=== PATIENT | male | born 1965 | race African-American/Black ===

== ENCOUNTER 2016-11-26 16:24 | Emergency (ER) | payer SELFPAY ==
--- NOTE | 2016-11-26 17:49 | ER Document Report ---
ED Extremity Problem, Lower - General Chief Complaint: Knee Pain Stated Complaint: LEFT LEG AND KNEE PAIN Time Seen by Provider: 11/26/16 17:34 Mode of Arrival: Ambulatory Information source: Patient Notes: 40-year-old male presents to ED for pain in his right knee 2 months states he fell about 2 months ago and has never been to a doctor yet. States she been trying to treat it himself but the pain is getting worse. There is also here for open draining sores to the left ankle lower leg and up to his knee. He states they started 3 months ago and has been trying to clean them with soap and water and treat them himself. States he had some similar once before and they put some yellow cream on his leg and wrapped his leg and it healed. TRAVEL OUTSIDE OF THE [place] IN LAST 30 DAYS: No - HPI Patient complains to provider of: Injury - To right knee 2 months ago, Pain, Swelling, Other - Left leg has open sores Location: Knee - Right knee, Leg - Calf Occurred: Other - See above Onset/Duration: Better Quality of pain: Pressure, Stabbing Severity: Moderate Pain Level: 4 Context: Fell - His right knee 2 months ago Recent injury: Possibly - 2 Month ago Associated symptoms: Painful ambulation Exacerbated by: Movement, Walking Relieved by: Nothing - Related Data Allergies/Adverse Reactions: No Known Allergies Allergy (Verified 11/26/16 16:27) Past Medical History - General Information source: Patient - Social History Smoking Status: Current Every Day Smoker Cigarette use (# per day): Yes - 1/2 ppd Chew tobacco use (# tins/day): No Smoking Education Provided: Yes - less than 2 months Frequency of alcohol use: Social - week ends Drug Abuse: None Occupation: Home Family History: Reviewed & Not Pertinent Patient has suicidal ideation: No Patient has homicidal ideation: No Renal/ Medical History: Denies: Hx Peritoneal Dialysis Skin Medical History: Reports Hx MRSA, Reports Hx Psoriasis - Immunizations Hx Diphtheria, Pertussis, Tetanus Vaccination: No Review of Systems - Review of Systems Constitutional: No symptoms reported EENT: No symptoms reported Cardiovascular: No symptoms reported Respiratory: No symptoms reported Gastrointestinal: No symptoms reported Genitourinary: No symptoms reported Male Genitourinary: No symptoms reported Musculoskeletal: Joint pain - right knee for 2 months with minimal swelling Skin: Other - scaley with areas of scabbing, excoriated, weeping wound from ankle to knee on the left leg Hematologic/Lymphatic: No symptoms reported Neurological/Psychological: No symptoms reported Physical Exam - Vital signs Vitals: Temp Pulse Resp BP Pulse Ox 98.4 F 62 14 128/85 H 97 11/26/16 16:27 11/26/16 16:27 11/26/16 16:27 11/26/16 16:27 11/26/16 16:27 Interpretation: Normal - General General appearance: Appears well, Alert - HEENT Head: Normocephalic, Atraumatic Eyes: Normal Pupils: PERRL - Respiratory Respiratory status: No respiratory distress Chest status: Nontender Breath sounds: Normal Chest palpation: Normal - Cardiovascular Rhythm: Regular Heart sounds: Normal auscultation Murmur: No - Abdominal Inspection: Normal Distension: No distension Bowel sounds: Normal Tenderness: Nontender Organomegaly: No organomegaly - Back Back: Normal, Nontender - Extremities General upper extremity: Normal inspection, Nontender, Normal color, Normal ROM , Normal temperature General lower extremity: Normal inspection, Nontender, Normal color, Normal ROM , Normal temperature, Normal weight bearing. No: Amira's sign Hip: Normal Thigh: Normal Knee: Tender, Pain with ROM, Other - swelling to right leg Calf: Other - scaley with areas of scabbing, excoriated, weeping wound from ankle to knee on the left leg Ankle: Edema Foot: Normal - Neurological Neuro grossly intact: Yes Cognition: Normal Orientation: AAOx4 Mj Coma Scale Eye Opening: Spontaneous Mj Coma Scale Verbal: Oriented [place] Coma Scale Motor: Obeys Commands [place] Coma Scale Total: 15 Speech: Normal Motor strength normal: LUE, RUE, LLE, RLE Sensory: Normal - Psychological Associated symptoms: Normal affect, Normal mood - Skin Skin Temperature: Warm Skin Moisture: Dry Skin Color: Normal Course - Re-evaluation Re-evalutation: 11/26/16 19:23 Discussed x-rays with patient and written report given to patient. Consulted Dr. Farnsworth concerning the infection to the left lower leg. Washed with soap and water rinsed well dried and Bactroban applied as well as 4 x 4's and Kerlix. Patient given instructions on care of wound and prescription for Bactroban as per Dr. Farnsworth suggestion. - Vital Signs Vital signs: Temp Pulse Resp BP Pulse Ox 98.4 F 62 16 128/85 H 97 11/26/16 16:27 11/26/16 16:27 11/26/16 17:52 11/26/16 16:27 11/26/16 16:27 - Diagnostic Test Radiology reviewed: Image reviewed, Reports reviewed Discharge - Discharge Clinical Impression: Impetigo Knee injury Qualifiers: Encounter type: initial encounter Laterality: right Qualified Code(s): S89.91XA - Unspecified injury of right lower leg, initial encounter Condition: Stable Disposition: HOME, SELF-CARE Additional Instructions: Impetigo You have a skin infection called impetigo. This infection is caused by germs growing between the skin layers. It spreads easily and is quite contagious. The usual treatment is with oral antibiotics, along with washing the sores and application of an antibiotic ointment. There's a new prescription antibiotic ointment which may allow some cases of impetigo to be treated without pills. Healing takes about a week. All involved areas should recover with no scarring. If there is significant worsening, or if new symptoms (such as dark urine, fever, chills, or red streaks) arise, call the doctor or return for re- examination. SUSPECTED INTERNAL KNEE INJURY: The examiner of your injured knee suspects an internal injury to the cartilage or internal ligaments. This must be further investigated by an wildlife refuge specialist. The knee should be protected, ice packed, and elevated while awaiting your follow-up exam by the orthopedist. If there is severe swelling, severe pain, or any new symptoms while awaiting your exam, you should call the orthopedist. (If he/she is unavailable, call us or return for re-examination.) ICE & ELEVATION: Apply ice packs frequently against the painful area. Many different schedules are recommended, such as "20 minutes on, 20 minutes off" or "one hour ice, two hours rest." If you need to work, you may need to go longer between ice treatments. You should plan to have the area ice packed AT LEAST one- fourth of the time. The ice should be applied over the wrap, tape, or splint, or over a layer of cloth -- not directly against the skin. Some ice bags have a built-in cloth and can be put directly on the skin. Your injured part should be elevated as much as possible over the next 48 hours. Try to keep the injury above the level of the heart. Avoid use of the injured area. Elevation and rest will decrease the swelling. USE OF [id number] IBUPROFEN: Ibuprofen (Advil, Nuprin, Medipren, Motrin IB) is a medication for fever and pain control. In addition, it has anti- inflammatory effects which may be beneficial, especially in the treatment of injuries. It's best to take ibuprofen with food. Persons with ulcer disease or allergy to aspirin should notify their physician of this before taking ibuprofen. Ibuprofen can be given every four to six hours, for a total of four doses daily. Age Pain or fever dose Antiinflammatory dose 6-8 yr 200 mg (1 tab) 200 mg (1 tab) 9-11 yr 200 mg (1 tab) 200-400 mg (1-2 tab) 11-14 yr 200-400 mg (1-2 tab) 400 mg (2 tab) 15-adult 400 mg (2 tab) 600 mg (3 tab) Bactroban Ointment Bactroban is very effective against the germs that cause infection within the skin. It's useful for impetigo and other superficial infections. Deeper infections require antibiotics by mouth or by shot. Apply the medicine three times a day for one week, or longer if your doctor has advised it. Stop the medicine and call your doctor if you develop large blisters, severe itching, increasing pain, swelling, fever, or spreading redness. Soap Cleansing Gently wash the wound daily using a mild soap (like Ivory, Phisoderm, Neutrogena). Use warm water, rubbing gently until all debris, ooze, and crusting have been washed from the wound. Allow to dry briefly (about 10 minutes) after cleaning. Repeat this cleansing at least three times a day for the first two days and then once or twice a day. FOLLOW-UP CARE: If you have been referred to a physician for follow-up care, call the physician s office for an appointment as you were instructed or within the next two days. If you experience worsening or a significant change in your symptoms, notify the physician immediately or return to the Emergency Department at any time for re-evaluation. Prescriptions: Mupirocin [Bactroban 2% Ointment 22 gm] 22 applic TP TID #3 tube Forms: Elevated Blood Pressure, Smoking Cessation Education Referrals: [facility] [Provider Group] - Follow up as needed CESAR PIZANO MD [ACTIVE STAFF] - Follow up as needed
[2016-11-26] MEDS ORDERED: MUPIROCIN 2% OINTMENT 22 GM TP ONE (17:55)
--- NOTE | 2016-11-26 18:33 | RADIOLOGY REPORT (SQ) ---
EXAM DESCRIPTION: KNEE RIGHT 4 VIEWS COMPLETED DATE/TIME: 11/26/2016 6:04 pm REASON FOR STUDY: fall pain right knee COMPARISON: 07/21/2014 NUMBER OF VIEWS: Four views. TECHNIQUE: AP, lateral, and both oblique radiographic images acquired of the right knee. LIMITATIONS: None. FINDINGS: MINERALIZATION: Normal. BONES: No acute fracture or dislocation. No worrisome bone lesions. Small tricompartmental degenera tive osteophytes are noted. There is narrowing in the medial and lateral joint spaces. JOINT: No effusion. SOFT TISSUES: No soft tissue swelling. No radio-opaque foreign body. OTHER: No other significant finding. IMPRESSION: No acute fracture or dislocation identified. Mild moderate degenerative osteoarthritis. TECHNICAL DOCUMENTATION: JOB ID: [id number] [employer]- All Rights Reserved
[2016-11-26 19:33] VITALS: BP 111/72
== END 2016-11-26 19:34 | disposition home or self-care (01) ==
LOC: ER 16:24
DX: S89.91XA Unspecified injury of right lower leg, initial encounter (principal); L01.00 Impetigo, unspecified; M25.562 Pain in left knee; M79.605 Pain in left leg; W19.XXXA Unspecified fall, initial encounter; F17.210 Nicotine dependence, cigarettes, uncomplicated
CPT/HCPCS: 99283; 73564; J3490

== ENCOUNTER 2017-04-05 09:30 | Emergency (ER) | payer SELFPAY ==
--- NOTE | 2017-04-05 09:51 | ER Document Report ---
ED Medical Screen (RME) - General Chief Complaint: Leg Pain Stated Complaint: SKIN SORES ON LEGS Time Seen by Provider: 04/05/17 09:47 Mode of Arrival: Ambulatory Information source: Patient Notes: Patient is a 51 year old male who presents to the emergency department with chronic lower left extremity pain and swelling onset a week ago. Patient states that he has had problems with his legs for years. Patient denies any fevers. Patient has been seen multiple times in the emergency department but has not had follow up. Patient states he does get temporary relief with creams. Patient has on tight jeans therefore minimal exam was performed. Patient has dried scaling on the LLE with mild clear drainage. Patient has a sore on his RLE. Due to the unilateral complaints, an ultrasound has been initially ordered as not performed in the past. I have greeted and performed a rapid initial assessment of this patient. A comprehensive ED assessment and evaluation of the patient, analysis of test results and completion of the medical decision making process will be conducted by additional ED providers. TRAVEL OUTSIDE OF THE [place] IN LAST 30 DAYS: No - Related Data Allergies/Adverse Reactions: No Known Allergies Allergy (Verified 04/05/17 09:33) Home Medications: Current Home Medications No Home Medications 04/05/17 [History] Past Medical History Renal/ Medical History: Denies: Hx Peritoneal Dialysis Skin Medical History: Reports Hx MRSA, Reports Hx Psoriasis - Immunizations Hx Diphtheria, Pertussis, Tetanus Vaccination: No Physical Exam - Vital signs Vitals: Temp Pulse Resp BP Pulse Ox 98.4 F 60 18 137/90 H 98 04/05/17 09:44 04/05/17 09:44 04/05/17 09:44 04/05/17 09:44 04/05/17 09:44 Course - Vital Signs Vital signs: Temp Pulse Resp BP Pulse Ox 98.4 F 60 18 137/90 H 98 04/05/17 09:44 04/05/17 09:44 04/05/17 09:44 04/05/17 09:44 04/05/17 09:44 Scribe Documentation - Scribe Written by Navneet:: Navneet Lang, 04/05/2017 acting as scribe for :: Patrick
--- NOTE | 2017-04-05 11:08 | ER Document Report ---
ED General - General Chief Complaint: Leg Pain Stated Complaint: SKIN SORES ON LEGS Time Seen by Provider: 04/05/17 09:47 Mode of Arrival: Ambulatory Information source: Patient Notes: 51 yr old smoker with hx of bilateral lower extremity edema in the past with skin sores on the right ochoa presents now with concerns of cracking skin on the left. pt denies any fevers or chills, denies any nausea or vomiting. pt given steroid creams for his legs. denies any hx of dvt or pe or such risk factors. TRAVEL OUTSIDE OF THE [place] IN LAST 30 DAYS: No - HPI Onset: Last week Onset/Duration: Worse Quality of pain: Burning Severity: Moderate Pain Level: 2 Associated symptoms: Leg swelling Exacerbated by: Walking Relieved by: Denies Similar symptoms previously: Yes Recently seen / treated by doctor: Yes - Related Data Allergies/Adverse Reactions: No Known Allergies Allergy (Verified 04/05/17 09:33) Past Medical History - General Information source: Patient - Social History Smoking Status: Current Every Day Smoker Cigarette use (# per day): Yes Chew tobacco use (# tins/day): No Smoking Education Provided: Yes - Patient counselled regarding cessation for 4 minutes Frequency of alcohol use: Occasional Drug Abuse: None Family History: Reviewed & Not Pertinent Patient has suicidal ideation: No Patient has homicidal ideation: No Renal/ Medical History: Denies: Hx Peritoneal Dialysis Skin Medical History: Reports Hx MRSA, Reports Hx Psoriasis - Immunizations Hx Diphtheria, Pertussis, Tetanus Vaccination: No Review of Systems - Review of Systems Notes: REVIEW OF SYSTEMS: CONSTITUTIONAL : Denies fever, chills, or sweats. Denies recent illness. EENT: Denies eye, ear, throat, or mouth pain or symptoms. Denies nasal or sinus congestion or discharge. Denies throat, tongue, or mouth swelling or difficulty swallowing. CARDIOVASCULAR: Denies chest pain. Denies palpitations or racing or irregular heart beat. admits to left ankle edema. RESPIRATORY: Denies cough, cold, or chest congestion. Denies shortness of breath, difficulty breathing, or wheezing. GASTROINTESTINAL: Denies abdominal pain or distention. Denies nausea, vomiting , or diarrhea. Denies blood in vomitus, stools, or per rectum. Denies black, tarry stools. Denies constipation. GENITOURINARY: Denies difficulty urinating, painful urination, burning, frequency, blood in urine, or discharge. MUSCULOSKELETAL: admits to left leg swelling SKIN: admits ot left ochoa and right calf sores HEMATOLOGIC : Denies easy bruising or bleeding. LYMPHATIC: Denies swollen, enlarged glands. NEUROLOGICAL: Denies confusion or altered mental status. Denies passing out or loss of consciousness. Denies dizziness or lightheadedness. Denies headache. Denies weakness or paralysis or loss of use of either side. Denies problems with gait or speech. Denies sensory loss, numbness, or tingling. Denies seizures. PSYCHIATRIC: Denies anxiety or stress. Denies depression, suicidal ideation, or homicidal ideation. ALL OTHER SYSTEMS REVIEWED AND NEGATIVE. Dictation was performed using [employer] voice recognition software PHYSICAL EXAMINATION: GENERAL: Well-appearing, well-nourished and in no acute distress. HEAD: Atraumatic, normocephalic. EYES: Pupils equal round and reactive to light, extraocular movements intact, sclera anicteric, conjunctiva are normal. ENT: Nares patent, oropharynx clear without exudates. Moist mucous membranes. NECK: Normal range of motion, supple without lymphadenopathy LUNGS: Breath sounds clear to auscultation bilaterally and equal. No wheezes rales or rhonchi. HEART: Regular rate and rhythm without murmurs ABDOMEN: Soft, nontender, nondistended abdomen. No guarding, no rebound. No masses appreciated. Musculoskeletal: Normal range of motion, no pitting or edema. No cyanosis. NEUROLOGICAL: Cranial nerves grossly intact. Normal speech, normal gait. Normal sensory, motor exams PSYCH: Normal mood, normal affect. SKIN: left leg edema noted with dry cracked skin with erythema near the left knee. area of ulceration of the right calf superficial , weeping of the skin noted Physical Exam - Vital signs Vitals: Temp Pulse Resp BP Pulse Ox 98.4 F 60 18 137/90 H 98 04/05/17 09:44 04/05/17 09:44 04/05/17 09:44 04/05/17 09:44 04/05/17 09:44 Course - Re-evaluation Re-evalutation: 04/05/17 15:11 doppler was negative for dvt, however patient has probable pvd as seen by hair loss and chronic stasis changes. pt has probable cellulitc component as well, will treat with clinda and follow up with dr tatum for further care very strict return precautions given to the patient After performing a Medical Screening Examination, I estimate there is LOW risk for OPEN FRACTURE, COMPARTMENT SYNDROME, TENDON RUPTURE, ACUTE NEUROVASCULAR INJURY, or RETAINED FOREIGN BODY, thus I consider the discharge disposition reasonable. Also, there is no evidence or peritonitis, sepsis, or toxicity. I have reevaluated this patient multiple times and no significant life threatening changes are noted. The patient and I have discussed the diagnosis and risks, and we agree with discharging home with close follow-up with the understanding that symptoms and presentations can change. We also discussed returning to the Emergency Department immediately if new or worsening symptoms occur. We have discussed the symptoms which are most concerning (e.g., changing or worsening pain, fever, numbness, weakness, cool or painful digits) that necessitate immediate return. - Vital Signs Vital signs: Temp Pulse Resp BP Pulse Ox 97.9 F 54 L 17 143/96 H 98 04/05/17 11:14 04/05/17 11:14 04/05/17 11:14 04/05/17 11:14 04/05/17 11:14 - Diagnostic Test Radiology reviewed: Image reviewed - no dvt, Reports reviewed Discharge - Discharge Clinical Impression: Lower extremity edema, Encounter for smoking cessation counseling Cellulitis Qualifiers: Site of cellulitis: extremity Site of cellulitis of extremity: lower extremity Laterality: left Qualified Code(s): L03.116 - Cellulitis of left lower limb Condition: Stable Disposition: HOME, SELF-CARE Instructions: Edema, Peripheral ([facility]), Peripheral Vascular Disease ([facility]) Prescriptions: Clindamycin HCl 300 mg PO Q6 #40 capsule Oxycodone HCl [Oxycontin Ir 5 Mg Tablet] 1 - 2 mg PO Q4H PRN #25 tablet PRN Reason: For Pain Referrals: ARISTEO TATUM MD [ACTIVE STAFF] - Follow up tomorrow
[2017-04-05 11:22] VITALS: BP 143/96
--- NOTE | 2017-04-05 12:17 | XCELERA REPORT ---
[address] [address] Lower Extremity Venous Evaluation Name: ZEESHAN GOMEZ Age: 51 yrs Gender: Male : 1965 Patient Status: Emergency Patient Location: ER Study Date: 04/05/2017 10:20 AM Procedure: Color flow and duplex imaging of the veins of the left lower extremity as well as the right Common Femoral vein. Reason For Study: LLE pain/Swelling Ordering Physician: GUS GRANADOS Performed By: Stephenie Chandler Right Sided Venous Evaluation The right common femoral vein is fully compressible. Spontaneous and phasic flow is present in the right common femoral vein. Left Sided Venous Evaluation Normal vessel filling wall to wall, compression and augmentation as well as Colour flow down to the infrageniculate veins. Interpretation Summary No duplex evidence of DVT or obstruction in the left lower extremity nor in the right Common Femoral vein. : GUS GRANADOS [place]
== END 2017-04-05 11:22 | disposition home or self-care (01) ==
LOC: ER 09:30
DX: L03.116 Cellulitis of left lower limb (principal); R60.0 Localized edema; F17.210 Nicotine dependence, cigarettes, uncomplicated
CPT/HCPCS: 82962; 93971; 99284; 99406